=== PATIENT | female | born 1995 | race Caucasian/White ===

== ENCOUNTER 2017-06-09 00:51 | Emergency (ER) | payer MEDICAID, SELFPAY ==
[2017-06-09 00:59] VITALS: BP 122/61; PULSE 85; RESP 16; TEMP 36.6; O2SAT 100; BMI 38.7
[2017-06-09 01:19] LABS: Microscopic, Urine URINE MICROSCOPIC (MICROSCOPIC)
[2017-06-09 01:21] LABS: Appearance,Urine CLEAR (Clear); Bilirubin,Urine Negative (Negative); Blood, Urine Negative (Negative); Color,Urine YELLOW (Yellow); Glucose,Urine (UA) Negative (Negative); Ketones,Urine Negative (Negative); Leukocyte Esterase,Urine Negative (Negative); Nitrate,Urine Negative (Negative); Protein,Urine Negative (Negative); Urobilinogen,Urine 0.2 EU/dl (0.2)
[2017-06-09 01:27] LABS: Urine Pregnancy, HCG Qual. Negative (Negative)
--- NOTE | 2017-06-09 02:14 | HMH.EDBACK ---
ED Disposition Clinical Impression: Strain of lumbar region Qualifiers: Encounter type: initial encounter Qualified Code(s): S39.012A - Strain of muscle, fascia and tendon of lower back, initial encounter Disposition: Home, Self-Care Condition on Discharge: Good Instructions: DI for Low Back Pain Additional Instructions: see pcp for shadi altman Prescriptions: Cyclobenzaprine HCl [Flexeril 10mg tablet] 10 mg PO TID #30 tab predniSONE [Prednisone 20mg Tab] 20 mg PO DAILY #10 tab Referrals: Provider,Referral, [Primary Care Provider] - - Critical Care Critical Care Time: No Attestation: On 06/09/17, the high probability of a clinically significant, sudden or life threatening deterioration of the following system(s) required my full and direct attention, intervention and personal management. The time I documented below is in addition to time spent performing reported procedures but includes the following listed in this critical care notation. Medical Decision Making - Medical Records Medical records reviewed: Yes: I reviewed the patient's medical records. Vital Signs: 06/09/17 00:59 Temperature 97.8 F Temperature Source Oral Pulse Rate [Right Brachial] 85 Respiratory Rate 16 Blood Pressure [Right Arm] 122/61 Blood Pressure Mean [Right Arm] 81 Blood Pressure Source [Right Arm] Automatic Cuff Blood Pressure Position [Right Arm] Sitting 02 Sat by Pulse Oximetry 100 Oxygen Delivery Method Room Air - Lab Data Lab results reviewed: Yes: I reviewed the patient's lab results. Lab Results 06/09/17 01:15: Urine Color Yellow, Urine Appearance Clear, Urine pH 6.0, Ur Specific [place] 1.020, Urine Protein Negative, Urine Glucose (UA) Negative, Urine Ketones Negative, Urine Blood Negative, Urine Nitrate Negative, Urine Bilirubin Negative, Urine Urobilinogen 0.2, Ur Leukocyte Esterase Negative 06/09/17 01:15: Urine HCG, Qual Negative Orders (Tests/Meds): ORDERS Category Date Time Status Urinalysis and Microscopic Stat Lab 06/09/17 01:15 Results - Jere Inquiry Pt receiving controlled substance: No [facility] History I have reviewed the patient's past medical history: Yes - *Social History Alcohol Intake: never - Psychiatric History Expresses thoughts of harming self/others: None Suicide Plan Description: No Plan ROS Obtained: Yes All systems reviewed & no additional complaints - Constitutional Constitutional: Denies fever(s) - Eyes Eyes: Denies change in vision - ENT Ears, Nose, Mouth, and Throat: Denies sore throat - Cardiovascular Cardiovascular: Denies chest pain at rest - Respiratory Respiratory: No cough - Gastrointestinal Gastrointestingal: Denies: abdominal pain - Musculoskeletal Musculoskeletal: Denies joint pain, Reports back pain, Denies joint stiffness - Integumentary/Breasts Skin/Breast: Denies rash - Neurologic Neurologic: Denies frequent falls, Denies tingling/numbness/burning sensations Physical Exam - General General appearance: alert - Head Head exam: normocephalic - Eye Eye exam: Present: PERRL, EOMI - ENT ENT exam: Present: mucous membranes moist - Neck Neck exam: Present: trachea midline - Respiratory Respiratory exam: Absent: respiratory distress - Cardiovascular Cardiovascular exam: Present: regular rate - Abdominal Exam Abdominal exam: Present: soft - Back Exam Back exam: Present: muscle spasm, straight leg raise (R), straight leg raise (L). Absent: vertebral tenderness - Neurological Exam Neurological exam: Present: alert, oriented X3, CN II-XII intact - Psychiatric Psychiatric exam: Present: normal affect - Skin Skin exam: Absent: rash Back Pain HPI - General Chief Complaint: Back Pain/Injury Stated Complaint: Back Pain, No Accident Time Seen by Provider: 06/09/17 02:14 Mode of Arrival: Ambulatory Source of Information: Patient, Significant Other, Medical Record Limitations: No Limitations
--- NOTE | 2017-06-09 02:18 | ED_ITS ---
ED Disposition Clinical Impression: Strain of lumbar region Qualifiers: Encounter type: initial encounter Qualified Code(s): S39.012A - Strain of muscle, fascia and tendon of lower back, initial encounter Disposition: Home, Self-Care Condition on Discharge: Good Instructions: DI for Low Back Pain Additional Instructions: see pcp for shadi altman Prescriptions: Cyclobenzaprine HCl [Flexeril 10mg tablet] 10 mg PO TID #30 tab predniSONE [Prednisone 20mg Tab] 20 mg PO DAILY #10 tab Referrals: Provider,Referral, [Primary Care Provider] - - Critical Care Critical Care Time: No Attestation: On 06/09/17, the high probability of a clinically significant, sudden or life threatening deterioration of the following system(s) required my full and direct attention, intervention and personal management. The time I documented below is in addition to time spent performing reported procedures but includes the following listed in this critical care notation. Medical Decision Making - Medical Records Medical records reviewed: Yes: I reviewed the patient's medical records. Vital Signs: 06/09/17 00:59 Temperature 97.8 F Temperature Source Oral Pulse Rate [Right Brachial] 85 Respiratory Rate 16 Blood Pressure [Right Arm] 122/61 Blood Pressure Mean [Right Arm] 81 Blood Pressure Source [Right Arm] Automatic Cuff Blood Pressure Position [Right Arm] Sitting 02 Sat by Pulse Oximetry 100 Oxygen Delivery Method Room Air - Lab Data Lab results reviewed: Yes: I reviewed the patient's lab results. Lab Results 06/09/17 01:15: Urine Color Yellow, Urine Appearance Clear, Urine pH 6.0, Ur Specific [place] 1.020, Urine Protein Negative, Urine Glucose (UA) Negative, Urine Ketones Negative, Urine Blood Negative, Urine Nitrate Negative, Urine Bilirubin Negative, Urine Urobilinogen 0.2, Ur Leukocyte Esterase Negative 06/09/17 01:15: Urine HCG, Qual Negative Orders (Tests/Meds): ORDERS Category Date Time Status Urinalysis and Microscopic Stat Lab 06/09/17 01:15 Results - Jere Inquiry Pt receiving controlled substance: No [facility] History I have reviewed the patient's past medical history: Yes - *Social History Alcohol Intake: never - Psychiatric History Expresses thoughts of harming self/others: None Suicide Plan Description: No Plan ROS Obtained: Yes All systems reviewed & no additional complaints - Constitutional Constitutional: Denies fever(s) - Eyes Eyes: Denies change in vision - ENT Ears, Nose, Mouth, and Throat: Denies sore throat - Cardiovascular Cardiovascular: Denies chest pain at rest - Respiratory Respiratory: No cough - Gastrointestinal Gastrointestingal: Denies: abdominal pain - Musculoskeletal Musculoskeletal: Denies joint pain, Reports back pain, Denies joint stiffness - Integumentary/Breasts Skin/Breast: Denies rash - Neurologic Neurologic: Denies frequent falls, Denies tingling/numbness/burning sensations Physical Exam - General General appearance: alert - Head Head exam: normocephalic - Eye Eye exam: Present: PERRL, EOMI - ENT ENT exam: Present: mucous membranes moist - Neck Neck exam: Present: trachea midline - Respiratory Respiratory exam: Absent: respiratory distress - Cardiovascular Cardiovascular e
[2017-06-09 02:57] LABS: Bacteria,Urine 1+ /lpf
== END 2017-06-09 02:42 | disposition home or self-care (01) ==
PROVIDERS: Emergency Provider Emergency Medicine
DX: S39.012A Strain of muscle, fascia and tendon of lower back, initial encounter (principal)
CPT/HCPCS: 81001; 81025; 96372; 99281

== ENCOUNTER 2017-07-10 14:04 | Emergency (ER) | payer MEDICAID, SELFPAY ==
[2017-07-10 15:06] VITALS: BP 123/72; PULSE 85; RESP 18; TEMP 36.9; O2SAT 98; BMI 39.6
--- NOTE | 2017-07-10 15:17 | HMH.EDUTC ---
[facility] [place] Disposition Clinical Impression: Viral gastroenteritis Disposition: Home, Self-Care Condition on Discharge: Good Instructions: DI for Viral Gastroenteritis -- Adult, Viral Gastroenteritis Additional Instructions: ? Drink extra fluids with and between meals. If you have difficulty drinking, try very small amounts of water or suck on ice chips. ? Avoid fruit juices, as these do not replace minerals and can actually increase diarrhea. ? Children and adults can use sports drinks to replenish electrolytes. Younger children and infants should use products formulated for children, like oral rehydration solutions. ? Eat food in small amounts and let your stomach recover. ? Get lots of rest. You may feel tired or weak. ? Check with your doctor before taking medications or giving them to children. Never give aspirin to children or teenagers with a viral illness. This can cause Loy syndrome, a potentially life-threatening condition. Prescriptions: Ondansetron [Zofran 4mg ODT] 4 mg PO Q8H PRN #20 tab.rapdis PRN Reason: Nausea Referrals: Provider,Referral, MD [Primary Care Provider] - Forms: Work/School Release Time of Disposition: 15:47 Medical Decision Making - Medical Records Medical records reviewed: Yes: I reviewed the patient's medical records. Vital Signs: 07/10/17 15:06 Temperature 98.4 F Temperature Source Temporal Artery Scan Pulse Rate [Brachial] 85 Respiratory Rate 18 Blood Pressure [Right Arm] 123/72 Blood Pressure Mean [Right Arm] 89 Blood Pressure Source [Right Arm] Automatic Cuff Blood Pressure Position [Right Arm] Sitting 02 Sat by Pulse Oximetry 98 Oxygen Delivery Method Room Air - Jere Inquiry Pt receiving controlled substance: No Jere was queried for this patient: No [facility] [place] HPI - General Stated complaint: vomiting Mode of Arrival: Ambulatory Source of Information: Patient Limitations: No Limitations Description of Symptoms (Recalled from Triage Doc. by RN): V/N/D SINCE 7 AM HEENT Symptoms (Recalled from RN notes): No Resp Symptoms (Recalled from RN notes): No Skin Symptoms (Recalled from RN notes): No MS Symptoms (Recalled from RN notes): No Functional Status (Recalled from RN notes): NA - History of Present Illness Provider Complaint: Patient states that last night she began to have upset stomach and started having vomiting and diarrhea State that this morning she woke up and continued to have eppisodes of vomiting and diarrhea States that she has a small infant at home and she was worried States that she came in to see if she could get something for the nausea - Related Data Previous Rx's Medication Instructions Recorded Ondansetron [Zofran 4mg ODT] 4 mg PO Q8H PRN #20 tab.rapdis 07/10/17 Allergies Allergy/AdvReac Type Severity Reaction Status Date / Time No Known Allergies Allergy Verified 06/09/17 01:05 - Worker's Comp Is this a Worker's Comp case?: No [facility] History I have reviewed the patient's past medical history: Yes - Social History Smoking Status: Never smoker Alcohol Intake: never - Psychiatric History Expresses thoughts of harming self/others: None Suicide Plan Description: No Plan ROS Obtained: Yes All systems reviewed & no additional complaints - Gastrointestinal Gastrointestingal: Reports: diarrhea, nausea, vomiting. Denies: abdominal pain Physical Exam - General General appearance: alert, in no apparent distress - Respiratory Respiratory exam: Present: normal lung sounds bilaterally. Absent: respiratory distress - Cardiovascular Cardiovascular exam: Present: regular rate, normal rhythm. Absent: JVD - Abdominal Exam Abdominal exam: Present: soft, normal bowel sounds. Absent: distention, tenderness, guarding, rebound, rigidity - Neurological Exam Neurological exam: Present: alert, oriented X3
--- NOTE | 2017-07-10 15:28 | ED_ITS ---
[facility] [place] Clinical Impression: Viral gastroenteritis Disposition: Home, Self-Care Condition on Discharge: Good Instructions: DI for Viral Gastroenteritis -- Adult, Viral Gastroenteritis Additional Instructions: ? Drink extra fluids with and between meals. If you have difficulty drinking, try very small amounts of water or suck on ice chips. ? Avoid fruit juices, as these do not replace minerals and can actually increase diarrhea. ? Children and adults can use sports drinks to replenish electrolytes. Younger children and infants should use products formulated for children, like oral rehydration solutions. ? Eat food in small amounts and let your stomach recover. ? Get lots of rest. You may feel tired or weak. ? Check with your doctor before taking medications or giving them to children. Never give aspirin to children or teenagers with a viral illness. This can cause Nikita?s syndrome, a potentially life-threatening condition. Prescriptions: Ondansetron [Zofran 4mg ODT] 4 mg PO Q8H PRN #20 tab.rapdis PRN Reason: Nausea Referrals: Provider,Referral, MD [Primary Care Provider] - Forms: Work/School Release Time of Disposition: 15:47 Medical Decision Making - Medical Records Medical records reviewed: Yes: I reviewed the patient's medical records. Vital Signs: 07/10/17 15:06 Temperature 98.4 F Temperature Source Temporal Artery Scan Pulse Rate [Brachial] 85 Respiratory Rate 18 Blood Pressure [Right Arm] 123/72 Blood Pressure Mean [Right Arm] 89 Blood Pressure Source [Right Arm] Automatic Cuff Blood Pressure Position [Right Arm] Sitting 02 Sat by Pulse Oximetry 98 Oxygen Delivery Method Room Air - Jere Inquiry Pt receiving controlled substance: No Jere was queried for this patient: No [facility] [place] HPI - General Stated complaint: vomiting Mode of Arrival: Ambulatory Source of Information: Patient Limitations: No Limitations Description of Symptoms (Recalled from Triage Doc. by RN): V/N/D SINCE 7 AM HEENT Symptoms (Recalled from RN notes): No Resp Symptoms (Recalled from RN notes): No Skin Symptoms (Recalled from RN notes): No MS Symptoms (Recalled from RN notes): No Functional Status (Recalled from RN notes): NA - History of Present Illness Provider Complaint: Patient states that last night she began to have upset stomach and started having vomiting and diarrhea State that this morning she woke up and continued to have eppisodes of vomiting and diarrhea States that she has a small infant at home and she was worried States that she came in to see if she could get something for the nausea - Related Data Previous Rx's Medication Instructions Recorded Ondansetron [Zofran 4mg ODT] 4 mg PO Q8H PRN #20 tab.rapdis 07/10/17 Allergies Allergy/AdvReac Type Severity Reaction Status Date / Time No Known Allergies Allergy Verified 06/09/17 01:05 - Worker's Comp Is this a Worker's Comp case?: No [facility] History I have reviewed the patient's past medical history: Yes - Social History Smoking Status: Never smoker Alcohol Intake: never - Psychiatric History Expresses thoughts of harming self/others: None Suicide Plan Description: No Plan ROS Obtained: Yes All systems reviewed & no additional complaints - Gastrointestinal Gastrointestingal: Reports: diarrhea, nausea, vomiting. Denies: abdominal pain Physical Exam
[2017-07-10 15:56] VITALS: BP 123/72; PULSE 85; RESP 18; TEMP 36.9; O2SAT 98
== END 2017-07-10 15:57 | disposition home or self-care (01) ==
PROVIDERS: Emergency Provider Nurse Practitioner
DX: K52.9 Noninfective gastroenteritis and colitis, unspecified (principal)
CPT/HCPCS: 99202

== ENCOUNTER 2018-10-01 11:47 | Emergency (ER) | payer MEDICAID, SELFPAY ==
[2018-10-01 12:08] VITALS: BP 109/74; PULSE 78; RESP 20; TEMP 36.8; O2SAT 100; BMI 39.6
--- NOTE | 2018-10-01 12:09 | XR_ITS ---
XR shoulder RT min 2V COMPARISON: None HISTORY: Right shoulder pain after a fall TECHNIQUE: 3 views right shoulder FINDINGS: The clavicle is intact. The AC joint appears normal. The humeral head and glenoid are normal and there are no soft tissue calcifications. IMPRESSION: Negative right shoulder
--- NOTE | 2018-10-01 12:12 | PC.NURSE ---
RAD CALLED AT THIS TIME
--- NOTE | 2018-10-01 12:15 | HMH.EDUTC ---
[facility] [place] Disposition Clinical Impression: Muscle spasm of right shoulder Disposition: Home, Self-Care Condition on Discharge: Good Instructions: Ibuprofen, DI for Muscle Spasm Additional Instructions: *Ibuprofen kailyn 6 hours with meal as needed for pain/inflammation *Remember you had a Toradol shot in the clinic today, which is similar to Motrin no Motrin or Ibuprofen for the next 8hrs *Not additional anti-inflammatory like motrin, aleve, advil with the above amount of ibuprofen. You can still take Tylenol every 4 hours as needed if you need something else for pain *moist heat every 20 minutes 3-4 times a day to affected area *Muscle relaxer every 8 hours as needed for muscle spasms but remember, it WILL cause drowsiness You cannot take it and drive, operate machinery or care for small children You recieved Norflex which is a muscle relaxer, do not start the flexeril until at least 10pm tonight. *Keep this area active, no movement leads to more stiffness, However take it easy and avoid heavy lifting pushing or pulling *Follow up with you family doctor if no improvement for further treatment and evaluation Straight to ER if any life threatening symptoms Prescriptions: Ibuprofen [Ibuprofen 600mg Tablet] 600 mg PO Q6HP PRN #20 tab PRN Reason: Moderate Pain Cyclobenzaprine HCl [Flexeril 10mg tablet] 10 mg PO TID PRN #15 tab PRN Reason: Muscle Spasm Referrals: Provider,Referral, [Primary Care Provider] - As needed Forms: Work/School Release Medical Decision Making - Jere Inquiry Pt receiving controlled substance: No Jere was queried for this patient: No Vital Signs: 10/01/18 12:08 10/01/18 12:19 Temperature 98.2 F 98.1 F Temperature Source Oral Oral Pulse Rate [Left Apical] 78 106 H Respiratory Rate 20 18 Blood Pressure [Right Arm] 109/74 L 111/75 Blood Pressure Mean [Right Arm] 85 87 02 Sat by Pulse Oximetry 100 98 Oxygen Delivery Method Room Air - Lab Data Lab results reviewed: Yes: I reviewed the patient's lab results. Lab Results 10/01/18 12:09: [facility]st Clinic Negative Orders (Tests/Meds): ED MEDICATIONS Discontinued Medications Generic Name Dose Route Start Last Admin Trade Name Freq PRN Reason Stop Dose Admin Ketorolac Tromethamine 60 mg 10/01/18 13:09 Toradol 60mg/2ml Vial IM 10/01/18 13:10 ONCE ONE Orphenadrine Citrate 30 mg 10/01/18 13:09 Norflex 60mg/2ml Vial IM 10/01/18 13:10 ONCE ONE ORDERS Category Date Time Status XR shoulder RT min 2V Stat Exams 10/01/18 12:09 Taken - Radiology Data #1 Image(s): Shoulder Image Reviewed: Yes I reviewed the patient's radiology image Preliminary Findings: No Fracture Seen no acute finding [facility] [place] HPI - General Stated complaint: Shoulder & neck pain AO 09/26/18 Time Seen by Provider: 10/01/18 12:15 Mode of Arrival: Ambulatory Source of Information: Patient Limitations: No Limitations Description of Symptoms (Recalled from Triage Doc. by RN): PT C/O RT SHOULDER PAIN FROM FALL 3 DAYS AGO HEENT Symptoms (Recalled from RN notes): No Resp Symptoms (Recalled from RN notes): No Skin Symptoms (Recalled from RN notes): No MS Symptoms (Recalled from RN notes): Yes Functional Status (Recalled from RN notes): N/A - History of Present Illness Provider Complaint: Patient state that she tripped over her dog at home on Mon and fell and landed on her right shoulder area State that she thought it was ok and was able to move it State that she felt a little sore that day but has continued to get worse State that she laid down last night and not sure if she slept wrong or not but woke up this morning and feels like she is having a muscle spasm in her right shoulder area that is going up to her neck State that she has pain when she moves it or turns her head certain ways - Related Data Previous Rx's Medication Instructions Recorded Cyclobenzaprine HCl [Flexeril 10mg 10 mg PO TID PRN #15 tab 10/01
[2018-10-01 12:16] LABS: UTC Pregnancy Test, Urine Negative (Negative)
[2018-10-01 12:19] VITALS: BP 111/75; PULSE 106; RESP 18; TEMP 36.7; O2SAT 98; BMI 93.7
[2018-10-01 13:32] VITALS: BP 126/66; PULSE 65; RESP 18; TEMP 36.6; O2SAT 100
== END 2018-10-01 13:33 | disposition home or self-care (01) ==
PROVIDERS: Emergency Provider Nurse Practitioner
DX: M62.838 Other muscle spasm (principal); M25.511 Pain in right shoulder
CPT/HCPCS: 73030; 81025; 96372; 99202